=== PATIENT | female | born 2005 | race Asian ===

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

== ENCOUNTER 2023-07-13 20:02 | Emergency (ER) | payer MEDICAID, SELFPAY ==
[2021-03-29 16:06] VITALS: BP 106/67; BMI 17.9
[2023-07-13 20:15] VITALS: BP 105/71; PULSE 94; RESP 14; TEMP 36.4; O2SAT 95
[2023-07-13 20:28] LABS: Basophils % 0.2 %; Hematocrit 35.3 % (36-47); Lymphocytes # 1.1 10^3/uL (1.5-6.5); Lymphocytes % 8.6 %; Mean Corpuscular HGB Conc 32.3 g/dL (30-55); Mean Corpuscular Hemoglobin 27.5 pg (27-33); Mean Corpuscular Volume 85.1 fl (85-98); Mean Platelet Volume 11.3 fL (7.4-10.4); Monocytes # 1.5 10^3/uL (0.2-0.9); Monocytes % 11.7 %; Neutrophils # 10.06 10^3/uL (1.8-8.0); Neutrophils % 78.9 %; Nucleated Red Blood Cells % 0 %; Platelet Count 247 10^3/cmm (157-399); Red Blood Count 4.15 10^6/uL (3.85-5.65); Red Cell Distribution Width 12.6 % (12.1-15.1); White Blood Count 12.76 10^3/uL (4.5-13.0)
[2023-07-13 20:37] LABS: HCG, Serum Qual Negative (Negative)
--- NOTE | 2023-07-13 20:37 | ED_ITS ---
Documented by User: YOHANNES Cartagena 07/13/23 21:17 HPI - Female Genitourinary 2 General: Chief complaint: Urogenital-Female Stated complaint: toub le urin vack pain fever and aches Time Seen by Provider: 07/13/23 20:25 Source: patient Mode of arrival: ambulatory Limitations: no limitations History of Present Illness: Patient is a 17-year-old female presents the emergency department complaining of dysuria onset 1.5 weeks. Patient reports that she has been having associated lower abdominal pain, low back pain, and intermittent fevers since onset of dysuria. She is also reporting some nausea and vomiting. She denies history of urinary tract infections. She has not take anything for symptoms and reports adequate hydration. She comments that she thinks the infection is in her kidneys now due to the back pain and longevity of symptoms. Otherwise she denies any other symptoms at this time. She denies possibility of . MD elicited complaint: dysuria, UTI , pelvic pain and back pain Onset (ago): week(s) (1.5) Location of symptoms: suprapubic Severity: moderate Consistency: progressively worsening Vaginal discharge: none Vaginal bleeding: none Urinary symptoms: Dysuria Relieving factors: none Associated symptoms: Reports abdominal pain (Suprapubic), fevers/chills and nausea; Deny headache(s) Treatment prior to arrival: none Patient : No Review of Systems 2 General: Reports: 10 or more systems reviewed and unremarkable except in HPI and below Const: Reports: fever(s); Denies: chills, change in appetite, change in weight or diaphoresis ENMT: Denies: throat pain or hoarseness Card: Denies: chest pain, palpitations or lightheadedness Resp: Denies: dyspnea, productive cough or wheezing GI: Reports: abdominal pain (Suprapubic), nausea and vomiting; Denies: diarrhea or change in bowel habits : Reports: dysuria; Denies: flank pain, difficulty voiding, urinary frequency or urinary urgency Musc: Reports: back pain; Denies: neck pain Skin/Breast: Denies: rash or new lesions Neuro: Denies: headache(s) or dizziness PFSH ED 2 PFSH: Medical History Psychiatric care Family History Other Cancer Social History Smoking and tobacco/nicotine status: former use of tobacco/nicotine Second hand smoke exposure: Yes Alcohol intake: current Alcohol intake frequency: holidays/special occasions only Substance/Drug Use: former Date of last use: 05/2020 Adopted: No Highest education level completed: 10th Grade Education level details: currently in 11th grade Pets and animals: Yes Pets & animals: cat(s), dog(s) and farm animals Farm Animals: goats Pets & animal details: pig Sexually active: Yes (multiple partners) Are you practicing safe sex: No Do you think of yourself as: Straight/Heterosexual Current gender identity: Female Patricia/Buddhism: None Special patricia needs: No Agree to transfusion: Yes Physical Exam 2 Const: COMMON NORMALS: no acute distress, average body habitus, patient oriented x3, no limitations, healthy appearing, alert and well nourished G ENERAL APPEARANCE: cooperative and comfortable ORIENTATION/CONSCIOUSNESS: Yes awake HENMT: COMMON NORMALS: normocephalic, atraumatic, hearing grossly normal bilaterally, external ears normal, Normal external nose present, Normal nasal mucous membranes and turbinates present and moist oral mucous membranes HEAD & SCALP: normocephalic and atraumatic NOSE: Normal external nose present and Normal nasal mucous membranes and turbinates present EXTERNAL EAR: Yes external ears normal Eye: COMMON NORMALS: Equal, round and reactive pupils present, EOMs intact bilaterally, conjunctivae normal and normal visual land by confrontation C ONJUNCTIVA: Yes conjunctivae normal PUPIL: Yes Equal, round and reactive pupils present Neck/C-Spine: COMMON NORMALS: full ROM, supple, no meningeal signs and no JVD Resp: COMMON NORMALS: normal respiratory effort, No retractions, No use of accessory muscles and clear to auscultation bilaterally AUSCULTATION: clear to auscultation bilaterally, no crackles, no rales, no rhonchi and no wheezes Cardio: COMMON NORMALS: no JVD, regular rate, regular rhythm, S1 normal heart sound present, S2 normal heart sound present, No gallops present (Cardio), No clicks present (Cardio), No murmurs present (Cardio), No rub (Cardio) and Peripheral pulses 2+ throughout RATE: regular rate RHYTHM: regular rhythm HEART SOUNDS: S1 normal heart sound present and S2 normal heart sound present PERIPHERAL PULSES: Peripheral pulses 2+ throughout GI: COMMON NORMALS: Normal to inspection, nondistended, normoactive bowel sounds present, Soft to palpation, No hepatosplenomegaly present and no masses AUSCULTATION: Yes normoactive bowel sounds PALPATION: Yes Soft to palpation, Yes Tenderness to palpation present (GI) (Suprapubic), No Guarding due to palpation present (GI), No Rigid due to palpation and Yes No hepatosplenomegaly present RECTAL EXAM: deferred : COMMON NORMALS: Yes no CVA tenderness BLADDER/KIDNEY EXAM: Yes no CVA tenderness Back/Pelvis: COMMON NORMALS: no CVA tenderness Extremity: COMMON NORMALS: normal to inspection and full ROM Neuro: COMMON NORMALS: patient oriented x3, moves all extremities, no focal motor deficits and no sensory deficits noted SENSORIUM/ORIENTATION: Yes alert MENINGEAL SIGNS: Yes no meningeal signs Psych: COMMON NORMALS: mental status grossly normal, cooperative and speech normal SPEECH: Yes normal speech Skin: COMMON NORMALS: no rashes or lesions noted GENERAL SKIN EXAM: no rashes or lesions noted Course 2 Vital Signs: Vital signs: Vital Signs Temperature 97.6 F 07/13/23 20:15 Pulse Rate 95 07/13/23 21:23 Respiratory Rate 14 07/13/23 20:15 Blood Pressure 105/67 07/13/23 21:16 Pulse Oximetry 95 07/13/23 21:23 Oxygen Delivery Me thod Room Air 07/13/23 21:16 MDM - Female Medical Decision Making Patient seen and evaluated in the emergency department today due to a week and a half of urinary symptoms. Patient's vitals normal on arrival. Exam remarkable for some reproducible suprapubic tenderness to palpation. However she had a negative CVA strike and the rest of her exam was unremarkable. CBC showed signs of decreased hemoglobin, likely due to hemorrhagic cystitis. Patient noted that she is not currently on her menstrual cycle and denies possibility of . Her CMP showed minimal electrolyte imbalances, likely due to the vomiting she has been reporting. test negative. UA positive for blood and leukocytes, likely resembling a hemorrhagic cystitis. I have little reason to suspect she is dealing with a kidney stone or obstruction at this time, as she has been nontoxic-appearing with minimal pain reported throughout her ED stay. I will treat her with Levaquin for potential ascending urinary tract infection, as well as Zofran for her nausea. I encouraged lots of hydration which patient agrees with. All other questions and concerns addressed at this time. Return precautions given. Lab Data I reviewed the patient's lab results. 07/13/23 20:24 07/13/23 20:24 Laboratory Results WBC 12.76 10^3/uL (4.5-13.0) 07/13/23 20:24 RBC 4.15 10^6/uL (3.85-5.65) 07/13/23 20:24 Hgb 11.40 g/dL (12.4-14.8) L 07/13/23 20:24 Hct 35.3 % (36-47) L 07/13/23 20:24 MCV 85.1 fl (85-98) 07/13/23 20:24 MCH 27.5 pg (27-33) 07/13/23 20: MCHC 32.3 g/dL (30-55) 07/13/23 20:24 RDW 12.6 % (12.1-15.1) 07/13/23 20:24 Plt Count 247 10^3/cmm (157-399) 07/13/23 20:24 MPV 11.3 fL (7.4-10.4) H 07/13/23 20:24 Neut % (Auto) 78.9 % 07/13/23 20:24 Lymph % (Auto) 8.6 % 07/13/23 20:24 [place] % (Auto) 11.7 % 07/13/23 20:24 Eos % (Auto) 0.0 % 07/13/23 20:24 Baso % (Auto) 0.2 % 07/13/23 20:24 Neut # (Auto) 10.06 10^3/uL (1.8-8.0) H 07/13/23 20:24 Lymph # (Auto) 1.1 10^3/uL (1.5-6.5) L 07/13/23 20:24 [place] # (Auto) 1.5 10^3/uL (0.2-0.9) H 07/13/23 20:24 Eos # (Auto) 0.0 10^3/uL (0.0-0.8) 07/13/23 20:24 Baso # (Auto) 0.0 10^3/uL (0.0-0.1) 07/13/23 20:24 Nucleated RBC % (auto) 0 % 07/13/23 20:24 Nucleated RBCs # 0.0 /100WBC 07/13/23 20:24 Sodium 134 mmol/L (136-145) L 07/13/23 20:24 Potassium 3.4 mmol/L (3.5-5.1) L 07/13/23 20:24 Chloride 94 mmol/L (98-107) L 07/13/23 20:24 Carbon Dioxide 21 mmol/L (22-29) L 07/13/23 20:24 Anion Gap 22.4 (5-19) H 07/13/23 20:24 BUN 9 mg/dL (6-20) 07/13/23 20:24 Creatinine 0.7 mg/dL (0.5-0.9) 07/13/23 20:24 GFR Calculation 107.8 mL/min (90-130) 07/13/23 20:24 Glucose 101 mg/dL (65-115) 07/13/23 20:24 Calculated Osmolality 277 mOsm/kg (285-295) L 07/13/23 20:24 Calcium 8.9 mg/dL (8.5-10.5) 07/13/23 20:24 Total Bilirubin 0.7 mg/dL (0.15-1.2) 07/13/23 20:24 AST 15 U/L (0-32) 07/13/23 20:24 ALT 9 U/L (0-33) 07/13/23 20:24 Alkaline Phosphatase 109 U/L (35-105) H 07/13/23 20:24 Total Protein 7.1 g/dL (6.6-8.7) 07/13/23 20:24 Albumin 4.1 g/dL (3.5-5.2) 07/13/23 20:24 Globulin 3.0 g/dL (1.3-4.6) 07/13/23 20:24 HCG, Qual Negative (Negative) 07/13/23 20:24 Urine Color Yellow (Yellow) 07/13/23 20:39 Urine Appearance Hazy (CLEAR) A 07/13/23 20:39 Urine pH 5 (5-7) 07/13/23 20:39 Ur Specific [place] 1.020 (1.005-1.030) 07/13/23 20:39 Urine Protein Trace (Negative) 07/13/23 20:39 Urine Glucose (UA) Norm (Normal) 07/13/23 20:39 Urine Ketones 3+ (Negative) H 07/13/23 20:39 Urine Blood 3+ (Negative) H 07/13/23 20:39 Urine Nitrate Negative (Negative) 07/13/23 20:39 Urine Bilirubin 1+ (Negative) H 07/13/23 20:39 Urine Urobilinogen Neg mg/dL (Negative) 07/13/23 20:39 Ur Leukocyte Esterase Trace (Negative) H 07/13/23 20:39 Urine RBC 5-10 /hpf (0-2) H 07/13/23 20:39 Urine WBC 15-25 /hpf (0-5) H 07/13/23 20:39 Ur Squamous Epith Cells 15-25 /hpf (0-5) H 07/13/23 20:39 Amorphous Sediment Not Reportable 07/13/23 20:39 Urine Bacteria 1+ /hpf (NONE) H 07/13/23 20:39 Urine Mucus 2+ /hpf 07/13/23 20:39 No radiology studies performed this visit Discharge Plan Discharge Patient Disposition: Home Clinical Impression: Acute hemorrhagic cystitis Condition: Stable Prescriptions: New levofloxacin 750 mg tablet 750 mg PO DAILY 7 Days Qty: 7 0RF ondansetron HCl 4 mg tablet 4 mg PO Q8H Qty: 60 0RF No Action melatonin 10 mg capsule 10 mg PO DAILY clonidine HCl 0.1 mg tablet 0.1 mg PO .qhs 30 Days Qty: 30 3RF oxcarbazepine 150 mg tablet extended release 24 hr 150 mg PO BID 30 Days Qty: 60 3RF venlafaxine 225 mg tablet extended release 24hr 225 mg PO QAM 30 Days Qty: 30 3RF Discharge Orders: Discharge ED (Routine); Ordered 07/13/23 Ordered By: Maxwell Holbrook Referrals: J Luis Grubbs MD [Primary Care Provider] - Discharge Diet: Usual diet Discharge Activity: Increase activity as tolerated Patient Instructions: Hemorrhagic Cystitis Activity Restrictions/Additional Instructions: Take antibiotics as prescribed. Zofran for nausea. Plenty of fluids. Follow- up with your primary care provider. Return with any new or concerning symptoms. Coding Level of Care Code ED Canned Food Reconditioning Inspector for Chg Fwd Documented by User: Vahid Mcnamara DO 07/14/23 05:33 HPI - Female Genitourinary 2 General: Chief complaint: Urogenital-Female Stated complaint: toub le urin vack pain fever and aches Time Seen by Provider: 07/13/23 20:25 PFSH ED 2 PFSH: Medical History Psychiatric care Family History Other Cancer Social History Smoking and tobacco/nicotine status: former use of tobacco/nicotine Second hand smoke exposure: Yes Alcohol intake: current Alcohol intake frequency: holidays/special occasions only Substance/Drug Use: former Date of last use: 05/2020 Adopted: No Highest education level completed: 10th Grade Education level details: currently in 11th grade Pets and animals: Yes Pets & animals: cat(s), dog(s) and farm animals Farm Animals: goats Pets & animal details: pig Sexually active: Yes (multiple partners) Are you practicing safe sex: No Do you think of yourself as: Straight/Heterosexual Current gender identity: Female Patricia/Buddhism: None Special patricia needs: No Agree to transfusion: Yes Course 2 Vital Signs: Vital signs: Vital Signs Temperature 97.6 F 07/13/23 20:15 Pulse Rate 95 07/13/23 21:23 Respiratory Rate 14 07/13/23 20:15 Blood Pressure 105/67 07/13/23 21:16 Pulse Oximetry 95 07/13/23 21:23 Oxygen Delivery Me thod Room Air 07/13/23 21:16 MDM - Female Medical Decision Making Patient seen and evaluated in the emergency department today due to a week and a half of urinary symptoms. Patient's vitals normal on arrival. Exam remarkable for some reproducible suprapubic tenderness to palpation. However she had a negative CVA strike and the rest of her exam was unremarkable. CBC showed signs of decreased hemoglobin, likely due to hemorrhagic cystitis. Patient noted that she is not currently on her menstrual cycle and denies possibility of . Her CMP showed minimal electrolyte imbalances, likely due to the vomiting she has been reporting. test negative. UA positive for blood and leukocytes, likely resembling a hemorrhagic cystitis. I have little reason to suspect she is dealing with a kidney stone or obstruction at this time, as she has been nontoxic-appearing with minimal pain reported throughout her ED stay. I will treat her with Levaquin for potential ascending urinary tract infection, as well as Zofran for her nausea. I encouraged lots of hydration which patient agrees with. All other questions and concerns addressed at this time. Return precautions given. Chart reviewed. Lab Data 07/13/23 20:24 07/13/23 20:24 Laboratory Results WBC 12.76 10^3/uL (4.5-13.0) 07/13/23 20:24 RBC 4.15 10^6/uL (3.85-5.65) 07/13/23 20:24 Hgb 11.40 g/dL (12.4-14.8) L 07/13/23 20:24 Hct 35.3 % (36-47) L 07/13/23 20:24 MCV 85.1 fl (85-98) 07/13/23 20:24 MCH 27.5 pg (27-33) 07/13/23 20:24 MCHC 32.3 g/dL (30-55) 07/13/23 20:24 RDW 12.6 % (12.1-15.1) 07/13/23 20:24 Plt Count 247 10^3/cmm (157-399) 07/13/23 20:24 MPV 11.3 fL (7.4-10.4) H 07/13/23 20:24 Neut % (Auto) 78.9 % 07/13/23 20:24 Lymph % (Auto) 8.6 % 07/13/23 20:24 [place] % (Auto) 11.7 % 07/13/23 20:24 Eos % (Auto) 0.0 % 07/13/23 20:24 Baso % (Auto) 0.2 % 07/13/23 20:24 Neut # (Auto) 10.06 10^3/uL (1.8-8.0) H 07/13/23 20:24 Lymph # (Auto) 1.1 10^3/uL (1.5-6.5) L 07/13/23 20:24 [place] # (Auto) 1.5 10^3/uL (0.2-0.9) H 07/13/23 20:24 Eos # (Auto) 0.0 10^3/uL (0.0-0.8) 07/13/23 20:24 Baso # (Auto) 0.0 10^3/uL (0.0-0.1) 07/13/23 20:24 Nucleated RBC % (auto) 0 % 07/13/23 20: Nucleated RBCs # 0.0 /100WBC 07/13/23 20:24 Sodium 134 mmol/L (136-145) L 07/13/23 20:24 Potassium 3.4 mmol/L (3.5-5.1) L 07/13/23 20:24 Chloride 94 mmol/L (98-107) L 07/13/23 20:24 Carbon Dioxide 21 mmol/L (22-29) L 07/13/23 20:24 Anion Gap 22.4 (5-19) H 07/13/23 20:24 BUN 9 mg/dL (6-20) 07/13/23 20:24 Creatinine 0.7 mg/dL (0.5-0.9) 07/13/23 20:24 GFR Calculation 107.8 mL/min (90-130) 07/13/23 20:24 Glucose 101 mg/dL (65-115) 07/13/23 20:24 Calculated Osmolality 277 mOsm/kg (285-295) L 07/13/23 20:24 Calcium 8.9 mg/dL (8.5-10.5) 07/13/23 20:24 Total Bilirubin 0.7 mg/dL (0.15-1.2) 07/13/23 20:24 AST 15 U/L (0-32) 07/13/23 20:24 ALT 9 U/L (0-33) 07/13/23 20:24 Alkaline Phosphatase 109 U/L (35-105) H 07/13/23 20:24 Total Protein 7.1 g/dL (6.6-8.7) 07/13/23 20:24 Albumin 4.1 g/dL (3.5-5.2) 07/13/23 20:24 Globulin 3.0 g/dL (1.3-4.6) 07/13/23 20:24 HCG, Qual Negative (Negative) 07/13/23 20:24 Urine Color Yellow (Yellow) 07/13/23 20:39 Urine Appearance Hazy (CLEAR) A 07/13/23 20:39 Urine pH 5 (5-7) 07/13/23 20:39 Ur Specific [place] 1.020 (1.005-1.030) 07/13/23 20:39 Urine Protein Trace (Negative) 07/13/23 20:39 Urine Glucose (UA) Norm (Normal) 07/13/23 20:39 Urine Ketones 3+ (Negative) H 07/13/23 20:39 Urine Blood 3+ (Negative) H 07/13/23 20:39 Urine Nitrate Negative (Negative) 07/13/23 20:39 Urine Bilirubin 1+ (Negative) H 07/13/23 20:39 Urine Urobilinogen Neg mg/dL (Negative) 07/13/23 20:39 Ur Leukocyte Esterase Trace (Negative) H 07/13/23 20:39 Urine RBC 5-10 /hpf (0-2) H 07/13/23 20:39 Urine WBC 15-25 /hpf (0-5) H 07/13/23 20:39 Ur Squamous Epith Cells 15-25 /hpf (0-5) H 07/13/23 20:39 Amorphous Sediment Not Reportable 07/13/23 20:39 Urine Bacteria 1+ /hpf (NONE) H 07/13/23 20:39 Urine Mucus 2+ /hpf 07/13/23 20:39 Discharge Plan Discharge Patient Disposition: Home Clinical Impression: Acute hemorrhagic cystitis Condition: Stable Prescriptions: New levofloxacin 750 mg tablet 750 mg PO DAILY 7 Days Qty: 7 0RF ondansetron HCl 4 mg tablet 4 mg PO Q8H Qty: 60 0RF No Action melatonin 10 mg capsule 10 mg PO DAILY clonidine HCl 0.1 mg tablet 0.1 mg PO .qhs 30 Days Qty: 30 3RF oxcarbazepine 150 mg tablet extended release 24 hr 150 mg PO BID 30 Days Qty: 60 3RF venlafaxine 225 mg tablet extended release 24hr 225 mg PO QAM 30 Days Qty: 30 3RF Discharge Orders: Discharge ED (Routine); Ordered 07/13/23 Ordered By: Maxwell Holbrook Referrals: J Luis Grubbs MD [Primary Care Provider] - Discharge Diet: Usual diet Discharge Activity: Increase activity as tolerated Patient Instructions: Hemorrhagic Cystitis Activity Restrictions/Additional Instructions: Take antibiotics as prescribed. Zofran for nausea. Plenty of fluids. Follow- up with your primary care provider. Return with any new or concerning symptoms. Coding Level of Care Code ED Canned Food Reconditioning Inspector for Aydee Jett
[2023-07-13 20:44] VITALS: BP 101/67; PULSE 92; O2SAT 96
[2023-07-13 20:46] LABS: Alanine Aminotransferase 9 U/L (0-33); Albumin Level 4.1 g/dL (3.5-5.2); Alkaline Phosphatase 109 U/L (35-105); Anion Gap 22.4 (5-19); Aspartate Amino Transferase 15 U/L (0-32); Blood Urea Nitrogen 9 mg/dL (6-20); Calcium 8.9 mg/dL (8.5-10.5); Carbon Dioxide 21 mmol/L (22-29); Chloride 94 mmol/L (98-107); Creatinine Clr Calc Pharmacy 126.3724; Glomerular Filtration Rate 107.8 mL/min (90-130); Glucose 101 mg/dL (65-115); Osmolality Calculated 277 mOsm/kg (285-295); Potassium 3.4 mmol/L (3.5-5.1); Sodium 134 mmol/L (136-145); Total Bilirubin 0.7 mg/dL (0.15-1.2); Total Protein 7.1 g/dL (6.6-8.7)
[2023-07-13 20:54] LABS: Add Urine Microscopic? YES; Bilirubin Urine 1+ (Negative); Blood Urine 3+ (Negative); Glucose Urine UA Norm (Normal); Ketones Urine 3+ (Negative); Leukocyte Esterase Urine Trace (Negative); Nitrate Urine Negative (Negative); Protein Urine Trace (Negative); Urine Appearance Hazy (CLEAR); Urine Color Yellow (Yellow); Urobilinogen Urine Neg (Negative); pH Urine 5 (5-7)
[2023-07-13 20:55] LABS: Add Urine Culture? No; Bacteria Urine 1+ /hpf; Mucus Urine 2+ /hpf; Squamous Epithelial Cell Urine 15-25 /hpf (0-5); WBC Urine 15-25 /hpf (0-5)
[2023-07-13 21:16] VITALS: BP 105/67; O2SAT 98
[2023-07-13] MEDS: levoFLOXacin 750 mg Tablet PO (21:21)
[2023-07-13 21:23] VITALS: PULSE 95; O2SAT 95
== END 2023-07-13 21:26 | disposition home or self-care (01) ==
PROVIDERS: Emergency Medicine; Emergency Provider Physician Assistant; PCP Family Medicine
DX: N30.01 Acute cystitis with hematuria (principal); Z87.891 Personal history of nicotine dependence
CPT/HCPCS: 36415; 80053; 81001; 84703; 85025; 99283

== ENCOUNTER → 2024-12-15 15:08 | Outpatient (BNVA) | payer MEDICAID, SELFPAY ==
[2021-03-29 16:06] VITALS: BP 106/67; BMI 17.9
== END ==
PROVIDERS: PCP Family Medicine; Visit Provider Psychiatry & Neurology Psychiatry
DX: Z79.899 Other long term (current) drug therapy (principal)
CPT/HCPCS: 80053; 80061; 83036; 84443; 85025